=== PATIENT | female | born 1980 | race Caucasian/White ===

== ENCOUNTER 2023-09-17 17:34 | Emergency (ER) | payer OTHER, SELFPAY ==
[2023-09-17 17:37] VITALS: BP 140/100; PULSE 77; TEMP 36.9; O2SAT 99; BMI 35.4
--- NOTE | 2023-09-17 17:43 | XR_ITS ---
The [address] [address] Patient Name: CHARLES JACKSON MRN: [id number] date: 1980 Sex: F Assigned Patient Location: ER Current Patient Location: ED.MAIN Accession/Order Number: [id number] Exam Date: 09/17/2023 18:05 Report Date: 09/17/2023 18:42 At the request of: DEBORAH BOYER Procedure: XR forearm RT 2V PROCEDURE: XR elbow RT min 3V, XR forearm RT 2V HISTORY: fall COMPARISON: None. FINDINGS: BONES:Acute, nondisplaced transverse fracture through the radial neck and suspected extension into the articular surface. SOFT TISSUES:No visible soft tissue swelling. EFFUSION:Elbow joint effusion. OTHER: Negative. XR/XR forearm RT 2V IMPRESSION: 1. Acute nondisplaced radial neck and head fracture. 2. Elbow joint effusion. Electronically authenticated by: NICOLETTE HOFFMANN Date: 09/17/2023 18:42
--- NOTE | 2023-09-17 17:43 | XR_ITS ---
The [address] [address] Patient Name: CHARLES JACKSON MRN: [id number] date: 1980 Sex: F Assigned Patient Location: ER Current Patient Location: ED.MAIN Accession/Order Number: [id number] Exam Date: 09/17/2023 18:05 Report Date: 09/17/2023 18:42 At the request of: DEBORAH BOYER Procedure: XR elbow RT min 3V PROCEDURE: XR elbow RT min 3V, XR forearm RT 2V HISTORY: fall COMPARISON: None. FINDINGS: BONES:Acute, nondisplaced transverse fracture through the radial neck and suspected extension into the articular surface. SOFT TISSUES:No visible soft tissue swelling. EFFUSION:Elbow joint effusion. OTHER: Negative. XR/XR elbow RT min 3V IMPRESSION: 1. Acute nondisplaced radial neck and head fracture. 2. Elbow joint effusion. Electronically authenticated by: NICOLETTE HOFFMANN Date: 09/17/2023 18:42
--- NOTE | 2023-09-17 17:43 | XR_ITS ---
The [address] [address] Patient Name: CHARLES JACKSON MRN: [id number] date: 1980 Sex: F Assigned Patient Location: ER Current Patient Location: ER Accession/Order Number: [id number] Exam Date: 09/17/2023 18:05 Report Date: 09/17/2023 18:44 At the request of: DEBORAH BOYER Procedure: XR ankle RT min 3V PROCEDURE: XR ankle RT min 3V HISTORY: fall COMPARISON: None. FINDINGS: BONES:No fracture, acute abnormality, or significant arthropathy. SOFT TISSUES:No visible soft tissue swelling. EFFUSION:None visible. OTHER: Negative. XR/XR ankle RT min 3V IMPRESSION: 1. No acute bone abnormality. Electronically authenticated by: NICOLETTE HOFFMANN Date: 09/17/2023 18:44
--- NOTE | 2023-09-17 17:44 | ED_ITS ---
HPI HPI - General Adult General Chief complaint: Fall Stated complaint: FALL Time Seen by Provider: 09/17/23 17:35 Source: patient Mode of arrival: walk-in Limitations: no limitations History of Present Illness HPI narrative: Patient is a 43-year-old female who presents to the emergency department for the evaluation of injuries after a fall about 5 hours ago at work. Patient states she missed a step and fell onto her right side. She denies head injury, loss of consciousness. She is able to walk with a limp but she has some discomfort to the right ankle. She reports the majority of her pain in the right forearm and elbow. No medications taken prior to arrival although she did have Advil earlier in the day. She is not concerned for . She reports the majority of her pain in the right elbow with movement of flexion and extension. Related Data Previous Rx's ?Medication ?Instructions ?Recorded ondansetron 4 mg disintegrating 4 mg PO Q6H PRN nausea and 09/17/23 tablet vomiting #12 tabs oxycodone-acetaminophen 5 mg-325 1 tab PO Q6H PRN pain 4 days #15 09/17/23 mg tablet (Percocet) tabs Allergies Allergy/AdvReac Type Severity Reaction Status Date / Time Penicillins Allergy Severe Verified 09/17/23 17:37 Opioid HPI Opioid Management Most Recent Opioid Data: Last JUL Pain Assessment 09/17/23 18:16 Review of Systems ROS Constitutional Denies: fever or chills Ears, nose, mouth, and throat Denies: throat pain or nasal congestion Cardiovascular Denies: chest pain Respiratory Denies: shortness of breath Gastrointestinal Denies: nausea or vomiting Musculoskeletal Reports: extremity pain, extremity swelling and limited range of motion; Denies: back pain or neck pain Integumentary/Breast Denies: rash Neurological Denies: headache Hematologic/Lymphatic Denies: easy bruising or easy bleeding Exam Narrative Exam Narrative: Gen.: Awake, alert, in no distress Head: Normocephalic, atraumatic ENT: Moist mucous membranes, C-spine nontender with full range of motion Respiratory: No respiratory distress Extremities: No bony tenderness of the right shoulder or humerus. No significant tenderness to palpation of the right elbow or forearm. Limited flexion and extension at the right elbow due to pain. 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 with 2+ right radial pulse.Mild swelling noted of the right ankle with no bony point tenderness or obvious deformity Psych: Normal mood and affect Neuro: No focal neuro deficit Skin: Warm, dry, intact Constitutional Vital Signs, click to edit/add: Last Vital Signs Temp 98.5 F 09/17/23 17:37 Pulse 77 09/17/23 17:37 Resp 18 09/17/23 17:37 BP 140/100 H 09/17/23 17:37 Pulse Ox 99 09/17/23 17:37 Course Vital Signs Vital signs: Vital Signs Temperature 98.5 F 09/17/23 17:37 Pulse Rate 77 09/17/23 17:37 Respiratory Rate 18 09/17/23 17:37 Blood Pressure 140/100 H 09/17/23 17:37 Pulse Oximetry 99 09/17/23 17:37 Temperature 98.5 F 09/17/23 17:37 Pulse Rate 77 09/17/23 17:37 Respiratory Rate 18 09/17/23 17:37 Blood Pressure 140/100 H 09/17/23 17:37 Pulse Oximetry 99 09/17/23 17:37 Medical Decision Making MDM Narrative Medical decision making narrative: X-rays reviewed by myself, right elbow x-ray with impacted right radial head fracture. Patient placed in a short posterior splint and sling and remains neurovascularly intact. X-rays of the forearm and ankle are unremarkable. She was treated with pain medication. She was instructed to follow-up with occupational health as well as orthopedics and return to the ER if symptoms change or worsen. Medical Records Medical records reviewed: Yes I reviewed the patient's medical records Discharge Plan Discharge Stand Alone Forms: Portal Instructions Chief Complaint: Fall Clinical Impression: Fracture of head of right radius, Right ankle sprain Patient Disposition: Home, Self-Care Time of Disposition Decision: 18:32 Condition: Good Prescriptions / Home Meds: New oxycodone-acetaminophen [Percocet] 5-325 mg tablet 1 tab PO Q6H PRN (Reason: pain) 4 Days Qty: 15 0RF Rx Instructions: DX: M25.521 ondansetron 4 mg tablet,disintegrating 4 mg PO Q6H PRN (Reason: nausea and vomiting) Qty: 12 0RF Print Language: Wolof Instructions: Ankle Sprain (ED), Elbow Fracture (ED) Referrals: [facility] [Outside] - As soon as possible Krishna Todd MD [Physician] - As soon as possible
[2023-09-17] MEDS: OXYCODONE HCL/ACETAMINOPHEN 5MG/325MG 1 TAB PO (18:16)
== END 2023-09-17 19:01 | disposition home or self-care (01) ==
PROVIDERS: Emergency Provider Emergency Medicine
DX: S52.121A Displaced fracture of head of right radius, initial encounter for closed fracture (principal); S93.401A Sprain of unspecified ligament of right ankle, initial encounter; W10.8XXA Fall (on) (from) other stairs and steps, initial encounter
CPT/HCPCS: 29125; 73080; 73090; 73610; 99284

== ENCOUNTER 2023-11-26 14:50 | Outpatient (RCR) | payer OTHER, SELFPAY | END 2024-01-03 11:31 | disposition home or self-care (01) | LOC: OT 14:50 | PROVIDERS: Visit Provider Nurse Practitioner Family | DX: S93.401D Sprain of unspecified ligament of right ankle, subsequent encounter (principal); S52.131D Displaced fracture of neck of right radius, subsequent encounter for closed fracture with routine healing; S52.121D Displaced fracture of head of right radius, subsequent encounter for closed fracture with routine healing | CPT/HCPCS: 97035; 97110; 97140; 97165 ==